=== PATIENT | female | born 1970 | race Caucasian/White ===

== ENCOUNTER → 2016-06-23 | Outpatient (CLI) | payer OTHER ==
[~2016-06-23] MED LIST: ASPCH81X PO; B-COTAB18 PO; CALC1TAB56 PO; CHOL100010 PO; HYDR25TA4 PO; MULT-506 PO; NORCO PO; OXYC-57 PO; POTA-335 PO; POTA-65 PO; TAMO20TA9 PO; ZINC PO; ZINC1CAP PO; ZNTT/150 PO; zinc PO
--- NOTE | 2016-06-23 17:05 | DIAGNOSTIC IMAGING REPORT ---
EXAMINATION: PELVIC ULTRASOUND CLINICAL HISTORY: D25.9 Leiomyoma of uterus FIBROIDS. PELVIC PAIN. COMPARISON STUDY: 03/23/2016 FINDINGS: The uterus measured enlarged with a maximum dimension 10 cm. Several fibroids measuring up to 5.0 x 5.2 cm. This is minimally increased in the prior study.. The endometrial stripe measured 5 mm unchanged. The right ovary measured 3.5 cm. Normal vascular flow. Small slightly complex ovarian cysts measuring up to 1.5 cm.. The left ovary measured 4 definition of the left ovary similar compared to the prior study. 6 cm exophytic fibroid most likely adjacent to the left ovary. This appearance is unchanged.. There is no ultrasonographic evidence of ovarian torsion. It should be noted that ovarian torsion can be present with normal Doppler ultrasonographic findings. There was no evidence of pathologic free pelvic fluid. IMPRESSION: 1. Several uterine fibroids with overall appearance unchanged from the prior exam. 2. Exophytic fibroid on the left adjacent to the left ovary 3. Several small right ovarian cysts Electronically signed by: Moy Donohue M.D. 06/23/2016 5:04 PM
== END | disposition home or self-care (01) ==
LOC: C.ULTR 15:52
PROVIDERS: ATTEND Obstetrics & Gynecology
DX: D25.9 Leiomyoma of uterus, unspecified (principal)

== ENCOUNTER → 2016-08-13 | Outpatient (CLI) | payer OTHER ==
[~2016-08-13] MED LIST changes: -ASPCH81X PO; -CALC1TAB56 PO; -POTA-65 PO; +TAMO20TA47 PO; -TAMO20TA9 PO; -ZINC PO
== END | disposition home or self-care (01) ==
LOC: C.PAPS 10:28
PROVIDERS: ATTEND Obstetrics & Gynecology
DX: Z12.4 Encounter for screening for malignant neoplasm of cervix (principal)

== ENCOUNTER 2016-08-20 07:43 | Observation (INO) | payer OTHER ==
[2016-08-13 13:38] VITALS: BMI 35.0
--- NOTE | 2016-08-13 14:08 | PAT Medication Instructions ---
Service Date Aug 13, 2016. Current Home Medication List B-Complex Vitamins (Vitamin B Complex), 1 TAB PO QAM Cholecalciferol (Vitamin D), 1,000 INTER.UNIT PO QAM Hydrochlorothiazide (Hctz), 25 MG PO QAM Multivitamin (Multivitamin), 1 TAB PO QAM Potassium Chloride (Micro-K Ext Rel), 20 MEQ PO BID Ranitidine (Zantac), 150 MG PO BID PRN for PRN Tamoxifen (Nolvadex), 20 MG PO NOON [[place]], 0.5-1 TAB PO PRN [zinc], 50 MG PO QAM Medication Instructions For Your Scheduled Surgery - Check with surgeon/prescribing physician: Tamoxifen (Nolvadex), 20 MG PO NOON - Hold the following medications the morning of surgery: [zinc], 50 MG PO QAM Ranitidine (Zantac), 150 MG PO BID PRN for PRN Multivitamin (Multivitamin), 1 TAB PO QAM Potassium Chloride (Micro-K Ext Rel), 20 MEQ PO BID B-Complex Vitamins (Vitamin B Complex), 1 TAB PO QAM Cholecalciferol (Vitamin D), 1,000 INTER.UNIT PO QAM Hydrochlorothiazide (Hctz), 25 MG PO QAM - Take the following medications the morning of surgery with a sip of water: [[place]], 0.5-1 TAB PO PRN (okay to take up to 4 hours prior to surgery if needed ) - Take the following medications as scheduled the night before surgery: Ranitidine (Zantac), 150 MG PO BID PRN for PRN Potassium Chloride (Micro-K Ext Rel), 20 MEQ PO BID [[place]], 0.5-1 TAB PO PRN If you have any questions please call us at [phone] (Pamela Hodges PA-C ) or [phone] or [phone]
[2016-08-13 14:42] LABS: BASO % 0.5 %; BASO ABS # 0.04 K/uL (0-0.2); COMPLETE YES; EOS % 2.7 %; HEMATOCRIT 41.6 % (37-47); IG% 0.1 %; LYMPH % 42.5 %; LYMPH ABS # 3.61 K/uL (1.2-3.4); MEAN CELL VOLUME 91.8 fL (80-100); MEAN CORPUSCULAR HGB CONC 34.9 g/dl (32-36); MEAN PLATELET VOLUME 9.3 fL (7.4-10.4); MONO % 7.1 %; NEUT % 47.1 %; PLATELET COUNT 326 K/uL (130-400); RED BLOOD COUNT 4.53 M/uL (4.2-5.4)
[2016-08-13 15:15] LABS: BUN/CREATININE RATIO 20.2 (10-20); CALCIUM 9.3 mg/dl (8.5-10.1); CREATININE 0.65 mg/dl (0.60-1.20); POTASSIUM 3.8 mmol/L (3.5-5.1)
[~2016-08-20] VITALS: Ht 167.6 cm; Wt 99.1 kg
[2016-08-20] MEDS: CEFAZOLIN 2000 MG/60 ML D5W 50 ML IV SCH ×2 (06:00→09:17)
[~2016-08-20 07:43] MED LIST changes: +ACETAMINOPHEN 1000 MG/100 ML IV IV ONE; +DEXAMETHASONE SOD INJ 4 MG/ML VIAL ONE; +EpHEDrine SULFATE INJ 50 MG/ML AMP ONE; +FENTANYL CITRATE INJ 50 MCG/1 ML 2 ML VIAL ONE; +GLYCOPYRROLATE INJ 0.2 MG/ML VIAL ONE; +LACTATED RINGER'S 1000ML 1,000 ML IV SCH; +LIDOCAINE HCL 2% 2 ML VIAL (20MG/ML) ONE; +MIDAZOLAM HCL 1 MG/ML 2ML VIAL ONE; +NEOSTIGMINE METHYLSULFATE 5 MG/5 ML SYR ONE; +ONDANSETRON INJ 2 MG/ML 2 ML VIAL ONE; -OXYC-57 PO; +PHENYLEPHRINE HCL INJ 10 MG/ML VIAL ONE; +PROPOFOL IV EMULSION 10 MG/ML 20 ML VIAL IV ONE; +ROCURONIUM BROMIDE 10 MG/ML 5 ML VIAL ONE; +SUCCINYLCHOLINE CHLORIDE 20 MG/ML 10 ML VIAL IV ONE; -ZINC1CAP PO
[2016-08-20 08:09] VITALS: BP 125/70; PULSE 63; TEMP 36.9; O2SAT 99; Ht 167.6 cm; Wt 99.1 kg
[2016-08-20] MEDS ORDERED: METHYLENE BLUE 0.5% 10 ML VIAL ONE (08:30)
[2016-08-20] MEDS ORDERED: BUPIVACAINE 0.5 % 5 MG/1 ML MPF 30ML VIAL ONE (08:30)
--- NOTE | 2016-08-20 08:57 | History & Physical Bridge Note ---
H&P Re-Evaluation Bridge Note: I have examined the patient, reviewed the History & Physical and in the interval since the performance of the History & Physical I have noted the following changes of clinical significance: No changes noted
[2016-08-20] MEDS ORDERED: FENTANYL CITRATE INJ 50 MCG/1 ML 2 ML VIAL ONE ×3 (09:17→12:18)
[2016-08-20] MEDS ORDERED: LABETALOL HCL IV 5 MG/ML 20ML IV PRN (10:00)
[2016-08-20] MEDS ORDERED: ONDANSETRON INJ 2 MG/ML 2 ML VIAL IV PRN (10:00)
[2016-08-20] MEDS ORDERED: PROMETHAZINE HCL INJ 12.5 MG in SODIUM CHLORIDE 0.9% 50ML 50 ML IV PRN (10:00)
[2016-08-20] MEDS ORDERED: ATROPINE SULFATE 0.1 MG/ML 5ML SYR IV PRN (10:00)
[2016-08-20] MEDS ORDERED: TISSEEL FIBRIN SEALANT 4ML TOP ONE (11:23)
[2016-08-20] MEDS ORDERED: PROPOFOL IV EMULSION 10 MG/ML 20 ML VIAL IV ONE (11:55)
[2016-08-20] MEDS ORDERED: ROCURONIUM BROMIDE 10 MG/ML 5 ML VIAL ONE (11:55)
[2016-08-20] MEDS ORDERED: ONDANSETRON INJ 2 MG/ML 2 ML VIAL ONE (11:55)
[2016-08-20] MEDS ORDERED: PHENYLEPHRINE 100MCG/ML 5ML SYR ONE (12:10)
[2016-08-20] MEDS ORDERED: LACTATED RINGER'S 1000ML 1,000 ML IV SCH (12:42)
[2016-08-20] MEDS ORDERED: ACETAMINOPHEN 325 MG TAB PO PRN (12:45)
[2016-08-20] MEDS ORDERED: MEPERIDINE HCL 75 MG/ML CARP IV PRN (12:45)
[2016-08-20] MEDS ORDERED: IBUPROFEN 600 MG TAB PO PRN (12:45)
[2016-08-20] MEDS ORDERED: OXYCODONE/ACETAMINOPHEN 5-325 TAB PO PRN ×2 (12:45)
[2016-08-20] MEDS ORDERED: OXYC-57 PO (12:45)
[2016-08-20] MEDS ORDERED: KETOROLAC TROMETHAMINE 30 MG/ML VIAL IV. PRN (12:45)
[2016-08-20] MEDS ORDERED: MEPERIDINE HCL 50 MG/ML CARP IV PRN (12:45)
--- NOTE | 2016-08-20 12:46 | Discharge Instructions ---
Discharge Instructions Admission Reason for Admission: Abnormal Uterine Bleeding, Dysmenorrhea, Leiomyoma Discharge Discharge Diagnosis / Problem: s/p laproscopic hyster and removal of both tubes and ovaries Discharge Goals Goal(s): Routine recovery after surgery Activity Recommendations Activity Limitations: per Instructions/Follow-up section . Instructions / Follow-Up Instructions / Follow-Up POST OPERATIVE: BOWEL FUNCTION/MEDICATIONS: 1. Constipation pain and discomfort are the most common complaints 5-7 days after surgery. Points 2-6 address the things that can help. 2. Chewing gum can help stimulate the gut and help improve digestion and motility. 3. Milk of Magnesia 1-2 times per day until return of bowel function. 4. Colace is a stool softener that helps. Taking this 2-3 times per day until bowel function returns to normal is highly recommended. 5. Dulcolax is a laxative that may be used if several days have passed without a bowel movement. Alternatively Miralax may be used daily instead. 6. Drink plenty of fluids as this will also reduce constipation. 7. Narcotic pain medications will be prescribed by your physician. They are safe to use and we encourage you to use them. If you are not allergic, ibuprofen will also be prescribed. Many patients will be able to transition off of the narcotic medications to ibuprofen by postoperative day 3. ACTIVITY RECOMMENDATIONS: 1. Get plenty of rest and listen to your body. If you are tired, take a nap. 2. You may shower, but do not take a tub bath until you see your doctor at the 2 week post operative visit. 3. Absolutely NO intercourse and nothing in the vagina until you are examined by your doctor at the 6 week visit. At that visit it will be determined when such activities can be resumed. This can range from 6-12 weeks after your surgery depending on healing time. 4. The main physical activity in the first week should be walking. By the second week you can slowly increase activity. There are no limits on walking up and down stairs. 5. Do not lift more than 5-10 lbs for 4 weeks. Remember the "one-handed rule", i.e. if you can lift something with only one hand it's likely okay. 6. Minimize senior engineering specialist like vacuuming and exercising for 4 weeks. "Overdoing it" can lead to incisions not healing, pain and vaginal bleeding , so again, listen to your body. 7. Driving can be resumed when you feel able. Do not drive within 24 hours of taking a narcotic medication. EXPECTATIONS: 1. Vaginal spotting, bleeding and discharge are common after surgery. There may even be an odor to the discharge which is often related to sutures used in the vagina. If you experience heavy vaginal bleeding, call the office number day or night [phone]. 2. Bladder discomfort is common after surgery from the catheter. This usually resolves in 1-2 weeks. 3. By the end of the 3rd or 4th week you should be feeling much better. It may take up to 6 weeks for your energy levels to return to normal. 4. Narcotic medications have side effects such as: dizziness, headache, nausea and/or vomiting. If you suspect your pain medication is causing problems, call our office and we may be able to prescribe an alternate medication. 5. The skin incisions are often covered with a liquid bandage. This will gradually peel off over time. CALL THE OFFICE IF YOU HAVE ANY OF THE FOLLOWIN. Temperature of 101 degrees or higher. 2. Severe abdominal or pelvic pain not relieved by pain medication. 3. Persistent nausea or vomiting. 4. Increased pain with urination or difficulty urinating. 5. Bright red bleeding that soaks more than 1 pad per hour. CONTACT PHONE NUMBERS: Main Office: [phone] Surgical Nurse: [phone] extension [phone] FOLLOW-UP: Post-Operative Appointments: * Individual instructions will have been given about the timing of your first examination, but this is usually at the end of the second week home. * You will need to call the office at soon after discharge to make the appointment for your post-op check-up if it has not already been scheduled. * Additional information regarding activity, sexual intercourse and when to return to work will be given at this appointment. WE WISH YOU A SPEEDY RECOVERY! Current Hospital Diet Patient's current hospital diet: Discharge Diet Recommended Diet: Regular Diet Procedures Procedures Performed: Robotic Assisted Total Laparoscopic Hysterectomy Bilateral Salpingo-oophorectomy Removal of uterine fibroids, and Excite procedure, Cystoscopy Pending Studies Studies pending at discharge: no Medical Emergencies . Who to Call and When: Medical Emergencies: If at any time you feel your situation is an emergency, please call 911 immediately. . Non-Emergent Contact Non-Emergency issues call your: Blood Donor Recruiter . . "Provider Documentation" section prepared by Sariah Gross. VTE Core Measure Inpt VTE Proph given/why not?: Treatment not indicated [place] Drug Monitoring Program Search Results: patient reviewed within database, no issues identified
--- NOTE | 2016-08-20 12:48 | [facility] Post Operative Brief Note ---
Immediate Operative Summary Operative Date Aug 20, 2016. Pre-Operative Diagnosis Abnormal Uterine bleeding, dysmenorrhea, uterine fibroid Post-Operative Diagnosis Abnormal Uterine bleeding, dysmenorrhea, uterine fibroid Procedure(s) Performed Robotic Assisted Total Laparoscopic Hysterectomy Bilateral Salpingo-oophorectomy Removal of uterine fibroids, and Excite procedure, Cystoscopy Surgeon Dr. Sariah Gross Preform Machine Operator Surgeon(s) Dr. Pamela Amor Estimated Blood Loss 100 ML Findings enlarged uterus with 2-5cm pedunculated fundal fibroids, uterine body enlarged with fibroids, endometriosis, adherence of the right ovary to the posterior uterus, nl left ovary and tubes. nl appendix. Specimens Permanent Specimen A: Uterus, cervix and bilateral ovaries and fallopian tubes and uterine fibroids Drains ballard Anesthesia gett Complication(s) None Disposition Recovery Room / PACU
[2016-08-20] MEDS: HYDROmorphone INJ 2 MG/ML SYR/VIAL IV PRN ×5 (13:10→13:30)
[2016-08-20 14:00] VITALS: BP 126/76; PULSE 81; TEMP 36.5; O2SAT 97; O2SAT 99
[2016-08-20 14:30] VITALS: BP 116/73; PULSE 80; O2SAT 99
--- NOTE | 2016-08-20 14:44 | Anesthesiology Progress Note ---
Anesthesia Post Op Note Date & Time Aug 20, 2016 at 14:44 Vital Signs Pain Intensity: 4.0 Vital Signs Past 12 Hours Date Time Temp Pulse Resp B/P Pulse Ox O2 Delivery O2 Flow Rate FiO2 08/20/16 13:50 36.4 80 24 133/71 97 Room Air 08/20/16 13:40 77 18 125/71 99 Room Air 08/20/16 13:30 77 14 120/81 98 Room Air 08/20/16 13:20 36.8 75 18 128/76 98 Room Air 08/20/16 13:10 69 18 122/68 100 Room Air 08/20/16 13:00 61 19 123/77 100 Mask 10 08/20/16 12:50 70 18 126/59 100 Mask 10 08/20/16 12:42 36.2 64 18 119/62 96 Mask 10 08/20/16 08:09 36.9 63 18 125/70 99 Room Air Notes Mental Status: alert / awake / arousable, participated in evaluation Pt Amnestic to Procedure: Yes Nausea / Vomiting: adequately controlled Pain: adequately controlled Airway Patency, RR, SpO2: stable & adequate BP & HR: stable & adequate Hydration State: stable & adequate Anesthetic Complications: no major complications apparent
[2016-08-20 15:00] VITALS: BP 117/72; PULSE 81; O2SAT 99
[2016-08-20] MEDS ORDERED: IV FLUIDS COMPLETED PRN (15:30)
[2016-08-20 16:00] VITALS: BP 119/73; PULSE 74; TEMP 36.6; O2SAT 98
[2016-08-20 20:03] VITALS: BP 119/73; PULSE 74; TEMP 36.6; O2SAT 98
[2016-08-20] MEDS ORDERED: DOCUSATE SODIUM 100 MG CAP PO SCH (21:00)
--- NOTE | 2016-08-20 22:41 | OPERATIVE REPORT ---
DATE OF OPERATION: 08/20/2016 PREOPERATIVE DIAGNOSES: 1. Fibroid uterus. 2. History of dysmenorrhea and menorrhagia. 3. History of ER positive breast cancer. POSTOPERATIVE DIAGNOSES: Same. PROCEDURES: 1. Total laparoscopic hysterectomy with bilateral salpingo-oophorectomy with da Yessenia assist. 2. ExCITE procedure for removal of the surgical specimen. 3. Cystoscopy. SURGEON: Dr. Gross. PROFESSOR OF EXERCISE SCIENCE: Dr. Pamela Amor. ANESTHESIA: General per endotracheal tube. ESTIMATED BLOOD LOSS: 100 mL. FLUIDS: 1700 mL. URINE OUTPUT: Approximately 200 mL of clear yellow urine drained from first Denise catheter prior to cystoscopy. HISTORY: Heidi is a 46-year-old 0, who was recently diagnosed with ER positive breast cancer. She also has fibroid uterus that has shown some small growth with some dysfunctional bleeding on tamoxifen and dysmenorrhea. She has elected for surgical therapy and her oncologist recommends removal of both her tubes and ovaries. FINDINGS: Uterus is enlarged. The uterine body itself is probably 8 weeks size. There are two 5-cm pedunculated fibroids arising from the fundus of the uterus. The right ovary is attached to the posterior uterus and there is evidence of endometriosis. The right tube and left tube were normal. Left ovary was normal. COMPLICATIONS: None. DRAINS: Denise. DISPOSITION: To recovery room in stable condition. DESCRIPTION OF PROCEDURE: The patient was taken to the operating room, where she was identified verbally and by bracelet. She was placed in dorsal supine position, where general anesthesia was induced without difficulty. She was then placed in dorsal lithotomy position in [facility]. Her arms were carefully prepped and tucked at her sides. Her chest was restrained. A headmaster/mistress was placed and she was prepped and draped in normal sterile fashion. Timeout was held, identifying correct patient, procedure and positioning. Attention was turned to the perineum, where a Denise catheter was placed. I was only able to sound to 5 cm, which I knew was certainly not within the uterine cavity but the VCare was placed anyway and sutured at 9 o'clock. Gloves were then changed. Attention was then turned to the abdomen, where a supraumbilical incision was made 2 cm above the umbilicus. The Veress needle was placed through this with opening pressure of 5 mmHg. The abdomen was insufflated with 4 liters of carbon dioxide gas. The 12-mm optical trocar with the camera was placed through this and intraabdominal placement was confirmed. Then under direct visualization, a left lower quadrant, a right lower quadrant and a left upper quadrant trocar were placed. The above noted findings were noted. The site was marked for the third arm. The da Yessenia medical surgical tech device was docked to the patient with 2 arms. Attention was then turned to the console. We began by first identifying the ureter on the right, finding it being free from the IP, the right infundibulopelvic ligament was taken down with cautery and scissors. The round ligament was then identified and taken down and the tubo-ovarian ligament as well. Once this was performed, I could tell that I was going to need the third arm to help with retraction and so, I scrubbed back into the case. The right lower quadrant trocar was found to be too close to the camera trocar, so it was removed. It was replaced more laterally under direct visualization and then another 8-mm trocar was placed in the right upper quadrant. Scissors were placed in arm 3, fenestrated bipolar in arm 2 and ProGrasp in arm 3. The surgeon then returned to the console. I was then able with better retraction to skeletonize the uterine artery, create the bladder flap and push down the bladder. The uterine arteries on the right side were cauterized and cut. Then attention was turned to the left side where the infundibulopelvic ligament was found to be free from the ureter. It was taken with cautery and scissors and then the round ligament was entered with cautery and scissors. I was able to go down, finish the bladder flap anteriorly, push down the bladder, skeletonize the uterine arteries and take the uterine arteries with cautery and scissors. Now that our blood supply was taken, I took off the two 5-cm fibroids that were pedunculated off the fundus in the hopes that we could get this uterus through the vagina and then pass the fibroids through. These were removed and placed in the right upper quadrant. A colpotomy incision was then made in 365 degrees and the specimen was removed from the vagina. We did attempt to remove the uterus through the vagina but we were unable to, so the uterus was placed into the right upper quadrant. The colpotomy incision was then closed with 2-0 VCare suture. Hemostasis was noted to be good, but FloSeal was placed over the cuff. I then rescrubbed in. I performed cystoscopy with a 70-degree scope and found no injury to the bladder, found blue urine effluxing from both ureters. Cystoscopy was discontinued. The old Denise had been removed and a new clean Denise was replaced. Gloves were then changed. Attention was then turned to the abdomen, where a 15-mm trocar was placed into the supraumbilical incision after I opened the incision to about 2-3 cm and as well and opened the fascial incision. The fascia was marked with 0 Vicryl on a UR-6. Then using the 5-mm scope, 2 of the 3 specimens were placed into the bag. The bag was brought up to the umbilicus and then using a knife, the specimen was broken up into several pieces. The bag was removed and a new bag was placed. Under direct visualization, the third pedunculated fibroid that had been cut off was placed into this. The bag was brought up through the incision and an ExCITE procedure was performed. This ExCITE procedure required us to put a small self-retaining plastic retractor into the incision to keep our hole open and then under direct visualization, the knife was used to cut the specimen using a C-type incision into several pieces. Once this was accomplished, that procedure was terminated. The gas was released. All trocars were removed. The fascia of the supraumbilical incisions was reapproximated with 0 Vicryl that were placed into this. All the incisions were irrigated. They were closed with 4-0 Vicryl in a subcuticular fashion. They were infiltrated with 0.5% Marcaine and treated with Dermabond. All sponge, lap and needle counts were correct x2. The patient tolerated the procedure well and was taken to recovery room in stable condition. I attest to the content of the Intraoperative Record and any orders documented therein. Any exceptions are noted below. CHIARA
--- NOTE | 2016-08-23 22:21 | DISCHARGE SUMMARY ---
ADMISSION DIAGNOSES: 1. Fibroid uterus. 2. Dysfunctional uterine bleeding and dysmenorrhea. 3. ER-positive breast cancer. DISCHARGE DIAGNOSES: Same. PROCEDURES: Total laparoscopic hysterectomy and bilateral salpingo-oophorectomy via da Yessenia assist. 2. ExCITE procedure to remove surgical specimen. 3. Cystoscopy. HISTORY OF PRESENT ILLNESS: The patient is a 46-year-old white female in a same sex relationship with a history of ER-0positive breast cancer. She has a symptomatic fibroid uterus, first discovered in, what looks like to be, 2015 with several fibroids, two of which are approximately 5 cm in largest diameter. She feels a lot of pressure on her bladder from the fibroids and bloating. The size of the uterus has remained fairly stable since discovering the fibroids. The patient has irregular periods and could go a few months between periods. An endometrial biopsy from 2015 revealed only endocervical tissue, Pap in 2014 was normal. She has been on tamoxifen about 1 year. When she is on the tamoxifen, she does not really bleed, as she has had stopped a few times for procedures, she has had some bleeding. She was really regular with her menses until up to this time point. Also noted increased cramping since starting all of this. Her oncologist would like to have her tubes and ovaries removed. Ultrasound shows an enlarged uterus, measuring 10 cm in largest diameter, with several fibroids in the body of the uterus, measuring 5 cm. There is also a 6-cm exophytic fibroid on the left. The right ovary shows a small complex cyst, measuring 1.5 cm. Left ovary is normal. For the rest of the patient's detailed history and physical, please see her dictated history and physical. ASSESSMENT: This is a 46-year-old G0 with a fibroid uterus, dysfunctional bleeding and ER-positive breast cancer and we plan to proceed with total laparoscopic hysterectomy, bilateral salpingo-oophorectomy and cystoscopy. HOSPITAL COURSE: 1. The patient was admitted and she underwent total laparoscopic hysterectomy and bilateral salpingo-oophorectomy via da Yessenia certified ophthalmic surgical assistant. 2. ExCITE procedure for surgical specimen removal. 3. Cystoscopy. 4. Estimated blood loss was 100 mL Findings at the time of surgery revealed a uterus with two 5-cm pedunculated fundal fibroids. The uterine body was enlarged with fibroids. There was endometriosis with adherence of the right ovary to the posterior uterus, a normal left ovary and tubes, normal appendix. The patient did well postoperatively. She voided after the removal of the Denise catheter, was able to tolerate a regular diet, able to tolerate oral pain medications and ambulate without difficulty. She was discharged home on the evening of her postop day 0. She was given Percocet for pain. She will return in 2 weeks for postoperative check.
== END 2016-08-20 20:25 | disposition home or self-care (01) ==
LOC: ENRESERVDT → ENRESERVTM → C.ACU 07:43 → C.MS4N 14:29
PROVIDERS: ADMIT Obstetrics & Gynecology; ATTEND Obstetrics & Gynecology
DX: D25.9 Leiomyoma of uterus, unspecified (principal); N93.8 Other specified abnormal uterine and vaginal bleeding; C50.919 Malignant neoplasm of unspecified site of unspecified female breast; N94.6 Dysmenorrhea, unspecified; I10 Essential (primary) hypertension; Z80.3 Family history of malignant neoplasm of breast; Z81.2 Family history of tobacco abuse and dependence; Z83.3 Family history of diabetes mellitus; Z82.3 Family history of stroke
CPT/HCPCS: 58573; S2900

== ENCOUNTER → 2016-09-07 | Day surgery (SDC) | payer OTHER ==
[2016-09-03 10:02] VITALS: Ht 167.6 cm; Wt 99.1 kg
[2016-09-03 13:34] LABS: HEMATOCRIT 41.2 % (37-47); MEAN CORPUSCULAR HEMOGLOBIN 32.7 pg (25-34); MEAN CORPUSCULAR HGB CONC 35.2 g/dl (32-36); MEAN PLATELET VOLUME 9.4 fL (7.4-10.4); PLATELET COUNT 328 K/uL (130-400); RED BLOOD COUNT 4.43 M/uL (4.2-5.4); WHITE BLOOD COUNT 10.24 K/uL (4.8-10.8)
[2016-09-03 13:43] LABS: INR 0.9 (0.9-1.1); PARTIAL THROMBOPLASTIN RATIO 1.1; PROTHROMBIN TIME (PATIENT) 9.8 SECONDS (9.0-12.0)
[2016-09-03 14:05] LABS: POTASSIUM 3.5 mmol/L (3.5-5.1)
[~2016-09-07] VITALS: Ht 167.6 cm; Wt 99.1 kg
[~2016-09-07] MED LIST changes: -ACETAMINOPHEN 1000 MG/100 ML IV IV ONE; +ACETAMINOPHEN 325 MG TAB PO PRN; +ACETAMINOPHEN IV 650 MG in EMPTY BAG 0 ML IV PRN; +BACITRACIN OINT 0.9 GM PKT ONE; +CEFAZOLIN 2000 MG/60 ML D5W IV SCH; -DEXAMETHASONE SOD INJ 4 MG/ML VIAL ONE; -EpHEDrine SULFATE INJ 50 MG/ML AMP ONE; -GLYCOPYRROLATE INJ 0.2 MG/ML VIAL ONE; +LIDOCAINE HCL 1% 20 ML VIAL ONE; +METOCLOPRAMIDE HCL INJ 5 MG/ML 2 ML VIAL IV PRN; -NEOSTIGMINE METHYLSULFATE 5 MG/5 ML SYR ONE; -NORCO PO; +ONDANSETRON INJ 2 MG/ML 2 ML VIAL IV PRN; -ONDANSETRON INJ 2 MG/ML 2 ML VIAL ONE; +OXYCODONE/ACETAMINOPHEN 5-325 TAB PO PRN; -PHENYLEPHRINE HCL INJ 10 MG/ML VIAL ONE; -ROCURONIUM BROMIDE 10 MG/ML 5 ML VIAL ONE; +SODIUM CHLORIDE 0.9% 1000ML 1,000 ML IV SCH; -SUCCINYLCHOLINE CHLORIDE 20 MG/ML 10 ML VIAL IV ONE
--- NOTE | 2016-09-07 14:41 | [facility] Post Operative Brief Note ---
Immediate Operative Summary Operative Date Sep 07, 2016. Pre-Operative Diagnosis Encounter for breast reconstruction following mastectomy Post-Operative Diagnosis Same Procedure(s) Performed Bilateral Nipple Reconstruction And Left Breast Scar Revision Surgeon Dr. Russell Insurance Sales Agent Surgeon(s) Citlalli Vasquez PA-C Estimated Blood Loss 5ML Findings none Specimens A. Left Breast Scar Tissue Anesthesia local with sedation Complication(s) None Disposition Recovery Room / PACU
--- NOTE | 2016-09-07 14:42 | Discharge Instructions ---
Discharge Instructions Date of Service Sep 07, 2016. Admission Reason for Admission: Breast Reconstruction Following Mastectomy Discharge Discharge Diagnosis / Problem: Breast Reconstruction Following Mastectomy Discharge Goals Goal(s): Decrease discomfort Activity Recommendations Activity Limitations: per Instructions/Follow-up section ACTIVITY RECOMMENDATIONS: __Normal activities _x_No bending, lifting or straining __No driving __Driving allowed when you are off pain medications __Walking permitted __You should have help at home for ___ days DRESSINGS: __No dressings required _x_Keep dressings dry/in place until first office visit. DO NOT WEAR A BRA __Remove dressings ___ and leave dressings off __Apply ice ___ days __Remove dressings and reapply garment __Apply antibiotic ointment (Bacitracin, Neosporin, etc) to wounds 3-4 times/ day for 10 days BATHING: _x_Keep dressings dry _x_Sponge bathing permitted __Showering permitted _x_No swimming, hot tubs or soaking in a tub MEDICATIONS: Resume previous medications unless instructed otherwise by your surgeon. _x_Do not use aspirin, Motrin, Advil or Ibuprofen as these may promote bleeding. Please use Tylenol. _x_Prescription(s) provided: Pain medication provided at your last office visit OTHER INSTRUCTIONS: __Record drain output 2-3 times per day SPECIAL CARE INSTRUCTIONS: * It is normal to have a mild fever after surgery. If your temperature is higher than 101.5 degrees F, please call the office at [phone]. * Constipation is a typical side effect of pain medication. An over-the- counter stool softener will help relieve this. * Leaking around surgical drains may occur and should not cause concern. Sometimes these drains become clogged. If this happens, remove the bulb and milk the clot out of the tube, then replace the bulb. * Drainage from wounds after liposuction is normal and should be expected. Garments will become soiled. You should protect furniture and bedding. This drainage should mostly subside within 2-3 days. Leave garments in place unless instructed to remove them. * If you have unusual drainage from a wound or are concerned you have an infection or have any questions or concerns, please call the office at [phone]. FOLLOW UP VISIT: If not already scheduled, please call the office, , when you return home after surgery to schedule an appointment to be seen in _2__ days. . Current Hospital Diet Patient's current hospital diet: Discharge Diet Recommended Diet: Regular Diet Procedures Procedures Performed: Bilateral Nipple Reconstruction And Left Breast Scar Revision Pending Studies Studies pending at discharge: yes List of pending studies: pathology Medical Emergencies . Who to Call and When: Medical Emergencies: If at any time you feel your situation is an emergency, please call 911 immediately. . Non-Emergent Contact Non-Emergency issues call your: Primary Care Provider, Surgeon . "Provider Documentation" section prepared by Chaya Vasquez. VTE Core Measure Inpt VTE Proph given/why not?: SCD's [place] Drug Monitoring Program Search Results: no issues identified
[2016-09-07 14:47] VITALS: TEMP 36.4
--- NOTE | 2016-09-07 15:13 | Anesthesia Progress Nt - [facility] ---
Anesthesia Post Op Note Date & Time Sep 07, 2016 at 15:14 Vital Signs Pain Intensity: 0 Vital Signs Past 12 Hours Date Time Temp Pulse Resp B/P Pulse Ox O2 Delivery O2 Flow Rate FiO2 09/07/16 14:47 36.4 84 16 113/78 100 Room Air 09/07/16 11:45 37 75 16 115/75 99 Room Air Notes Mental Status: alert / awake / arousable, participated in evaluation Pt Amnestic to Procedure: Yes Nausea / Vomiting: adequately controlled Pain: adequately controlled Airway Patency, RR, SpO2: stable & adequate BP & HR: stable & adequate Hydration State: stable & adequate Anesthetic Complications: no major complications apparent
[2016-09-07 15:18] VITALS: BP 129/86; PULSE 76; O2SAT 100
--- NOTE | 2016-09-08 16:14 | OPERATIVE REPORT ---
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 POSTOPERATIVE DIAGNOSIS: Same. PROCEDURE: Bilateral nipple reconstruction using spiral flaps. SURGEON: Dr. Risa Russell. RODEO PERFORMER: Chaya Vasquez PA-C. ANESTHESIA: Local with sedation. COMPLICATIONS: None. INDICATION FOR THE PROCEDURE: The patient is a 46-year-old female who underwent bilateral mastectomy with tissue hr associate based reconstruction followed by placement of a permanent breast prosthesis. She desired reconstruction of the nipple-areolar complexes. Given her scar position, I felt it would be most reasonable to proceed with nipple reconstruction using spiral flap with tattooing of the nipple and areola in about 3 months. BRIEF DESCRIPTION OF THE PROCEDURE: Risks, benefits, and alternatives of the procedure were explained to the patient, who agreed and signed consent. She was identified and marked in the preoperative holding area. Nipple-areolar complex position was verified with the patient prior to proceeding. The patient was brought to the operating room where she was positioned supine and placed under anesthesia without incident. Surgical site was prepped and draped sterilely. I began with the left side. Markings were assessed and the flaps were marked. Flaps were designed as an inferiorly based flap inferior to the mastectomy incision. Base of the flap was marked to be 1 cm in diameter and the medial and lateral aspects of the flap were marked to be 5 cm in length, tapering up toward the prior incision. 1% lidocaine plain was used to anesthetize the area. A 15-blade scalpel was used to make the incisions. Flaps were raised with some underlying subcutaneous tissue. There was no exposure of the implant during raising of the flaps. Hemostasis was achieved with electrocautery. The incision was closed using 3-0 PDS interrupted dermal sutures. The spiral flaps were then sutured using 6-0 Vicryl interrupted sutures to create a projecting nipple. Excess skins at the tips of the flaps were excised using a curved iris scissor. The edges of the flap were bleeding and the flap appeared pink and viable at the close of the case. The incision was closed using 3-0 Monocryl running subcuticular suture. A similar procedure was undertaken on the right side. Also on the left side, the patient desired to have a small medial and lateral dog ear excised. These were marked and injected with 1% lidocaine plain. The incision was made using 15 blade scalpel. Both aspects of the scar were sent to pathology. The wound was reapproximated using 3-0 PDS interrupted dermal sutures and 5-0 Prolene interrupted skin sutures. The procedure was tolerated well. Dermabond was applied to the incisions and the nipples were dressed using bacitracin and Xeroform followed by fluffs sponges. Warren foam was used to create a donut dressing to place around the nipple to prevent compression. The procedure was tolerated well. The patient was awakened and transferred to recovery in satisfactory condition. I attest to the content of the Intraoperative Record and any orders documented therein. Any exceptio ns are noted below.
== END | disposition home or self-care (01) ==
LOC: X.SURG 11:42
PROVIDERS: ATTEND Plastic Surgery
DX: Z42.1 Encounter for breast reconstruction following mastectomy (principal); Z90.13 Acquired absence of bilateral breasts and nipples; I10 Essential (primary) hypertension; Z82.49 Family history of ischemic heart disease and other diseases of the circulatory system; Z83.3 Family history of diabetes mellitus; Z82.3 Family history of stroke; Z78.9 Other specified health status; F17.200 Nicotine dependence, unspecified, uncomplicated; F17.210 Nicotine dependence, cigarettes, uncomplicated

== ENCOUNTER → 2017-02-10 | Outpatient (CLI) | payer OTHER ==
[~2017-02-10] MED LIST changes: -ACETAMINOPHEN 325 MG TAB PO PRN; -ACETAMINOPHEN IV 650 MG in EMPTY BAG 0 ML IV PRN; -BACITRACIN OINT 0.9 GM PKT ONE; -CEFAZOLIN 2000 MG/60 ML D5W IV SCH; -FENTANYL CITRATE INJ 50 MCG/1 ML 2 ML VIAL ONE; -LACTATED RINGER'S 1000ML 1,000 ML IV SCH; -LIDOCAINE HCL 1% 20 ML VIAL ONE; -LIDOCAINE HCL 2% 2 ML VIAL (20MG/ML) ONE; -METOCLOPRAMIDE HCL INJ 5 MG/ML 2 ML VIAL IV PRN; -MIDAZOLAM HCL 1 MG/ML 2ML VIAL ONE; -ONDANSETRON INJ 2 MG/ML 2 ML VIAL IV PRN; -OXYCODONE/ACETAMINOPHEN 5-325 TAB PO PRN; -PROPOFOL IV EMULSION 10 MG/ML 20 ML VIAL IV ONE; -SODIUM CHLORIDE 0.9% 1000ML 1,000 ML IV SCH; -TAMO20TA47 PO
[2017-02-10 10:42] LABS: CHOLESTEROL/HDL RATIO 2.2
== END | disposition home or self-care (01) ==
LOC: C.LAB 09:23
PROVIDERS: ATTEND Nurse Practitioner
DX: Z00.00 Encounter for general adult medical examination without abnormal findings (principal)

== ENCOUNTER → 2017-05-20 | Day surgery (SDC) | payer OTHER ==
[2016-09-03 10:18] VITALS: BMI 35.0
[2017-05-06 15:46] VITALS: Ht 167.6 cm; Wt 104.5 kg
[~2017-05-20] VITALS: Ht 167.6 cm; Wt 104.5 kg
[~2017-05-20] MED LIST changes: +ASPCH81X PO; +CALC1TAB56 PO; -CHOL100010 PO; +LIDOCAINE HCL 2% 2 ML VIAL (20MG/ML) ONE; +MIDAZOLAM HCL 1 MG/ML 2ML VIAL ONE; +ONDANSETRON INJ 2 MG/ML 2 ML VIAL ONE; -POTA-335 PO; +POTA-65 PO; +PROPOFOL IV EMULSION 10 MG/ML 20 ML VIAL IV ONE; +SODIUM CHLORIDE 0.9% 500ML 500 ML IV ONE; +TAMO20TA9 PO; +ZINC PO; -zinc PO
--- NOTE | 2017-05-20 10:57 | Endo History and Physical ---
History & Physical Date of Service: May 20, 2017. Chief Complaint: screening,history of polyps Referring Physician: Caro OAKLEY History of Present Illness 46 yo CF who presents for colonoscopy secondary to history of colon polyps. Past Medical History Reflux, Cancer, Hypertension Past Surgical History Hx Cardiac Surgery: No Hx Internal Defibrillator: No Hx Pacemaker: No Hx Abdominal Surgery: Yes (MARY BSO, HERNIA REPAIR) Hx of Implantable Prosthesis: No Hx Post-Op Nausea and Vomiting: No Hx Cancer Surgery: Yes (BLT BREAST MASTECTOMY WITH IMPLANT BASED RECONSTRUCTION , BREAST BIOPSY) Hx Thoracic Surgery: No Hx Orthopedic: No Hx Urinary Tract Surgery: No Family History Colon CA, Polyp Social History Smoking Status: Current Every Day Smoker Hx Substance Use: No Hx Alcohol Use: Yes (OCCASIONALLY) Allergies Coded Allergies: NO KNOWN DRUG ALLERGIES (Verified Allergy, Unknown, ., 05/20/17) Current Medications Reported Home Medications Medications Dose Route/Sig Max Daily Dose Days Date Category Nolvadex (Tamoxifen Citrate) 20 Mg Tab 20 Mg PO QPM 05/06/17 Reported Aspirin Chewable (Aspirin) 81 Mg Chew 81 Mg PO HS 05/06/17 Reported [Zinc] 1 Tab PO QAM 05/06/17 Reported Potassium Chloride ER (Potassium Chloride) 20 Meq Tab 1 Tab PO BID 05/06/17 Reported Citracal Calcium+D Slow R (Calcium-Magnesium W/ Vitamin D) 1 Tab Tab 1 Tab PO QAM 05/06/17 Reported Zantac (Ranitidine HCl) 150 Mg Tab 150 Mg PO QAM 08/13/16 Reported Vitamin B Complex (B-Complex Vitamins) 1 Tab Tab 1 Tab PO QAM 08/13/16 Reported Hctz (Hydrochlorothiazide) 25 Mg Tab 25 Mg PO QAM 03/19/15 Reported Multivitamin (Multivitamins) Tab 1 Tab PO QAM 06/02/13 Reported Vital Signs Weight (Kilograms): 104.55 Height (Feet): 5 Height (Inches): 6 Date Time Temp Pulse Resp B/P (MAP) Pulse Ox O2 Delivery O2 Flow Rate FiO2 05/20/17 10:20 37.1 80 20 121/81 (94) 95 Room Air Physical Exam General Appearance: WD/WN, no apparent distress Respiratory/Chest: Auscultation: breath sounds normal Cardiovascular: Heart Auscultation: RRR Abdomen: Bowel Sounds: normal Inspection & Palpation: soft, non-distended, no tenderness, guarding & rebound Assessment and Plan Assessment: 46 yo CF who presents for colonoscopy secondary to history of colon polyps. Plan: Proceed with colonoscopy.
--- NOTE | 2017-05-20 11:28 | GI REPORT ---
Procedure Date: 05/20/2017 10:52 AM Procedure: Colonoscopy Indications: High risk colon cancer surveillance: Personal history of colonic polyps Medicines: Monitored Anesthesia Care Complications: No immediate complications. Estimated Blood Loss: Estimated blood loss: none. Procedure: Pre-Anesthesia Assessment: - Prior to the procedure, a History and Physical was performed, and patient medications and allergies were reviewed. The patient's tolerance of previous anesthesia was also reviewed. The risks and benefits of the procedure and the sedation options and risks were discussed with the patient. All questions were answered, and informed consent was obtained. Prior Anticoagulants: The patient has taken aspirin, last dose was 2 days prior to procedure. ASA Grade Assessment: III - A patient with severe systemic disease. After reviewing the risks and benefits, the patient was deemed in satisfactory condition to undergo the procedure. After I obtained informed consent, the scope was passed under direct vision. Throughout the procedure, the patient's blood pressure, pulse, and oxygen saturations were monitored continuously. The Scope was introduced through the anus and advanced to the terminal ileum. The colonoscopy was performed without difficulty. The patient tolerated the procedure well. The quality of the bowel preparation was good. The terminal ileum, ileocecal valve, appendiceal orifice, and rectum were photographed. Findings: A 4 mm polyp was found in the rectum. The polyp was sessile. The polyp was removed with a cold snare. Resection and retrieval were complete. Non-bleeding internal hemorrhoids were found during retroflexion. The hemorrhoids were small. Impression: - One 4 mm polyp in the rectum, removed with a cold snare. Resected and retrieved. - Non-bleeding internal hemorrhoids. Recommendation: - Resume previous diet. - Continue present medications. - Repeat colonoscopy for surveillance based on pathology results. - Return to primary care physician as previously scheduled. Kevon Toro DO 05/20/2017 11:27:34 AM This report has been signed electronically. Note Initiated On: 05/20/2017 10:52 AM I attest to the content of the Intraoperative Record and orders documented therein, exceptions below
--- NOTE | 2017-05-20 11:29 | Discharge Instructions ---
Endoscopy Patient Instructions Date / Procedure(s) Performed May 20, 2017. Colonoscopy Allergy Information Coded Allergies: NO KNOWN DRUG ALLERGIES (Verified Allergy, Unknown, ., 05/20/17) Discharge Date / Findings May 20, 2017. Rectal polyp Internal hemorrhoids Medication Instructions Stopped Medication(s): took ASA Tuesday OK to resume all medications today as prescribed Reported Home Medications Medications Dose Route/Sig Max Daily Dose Days Date Category Nolvadex (Tamoxifen Citrate) 20 Mg Tab 20 Mg PO QPM 05/06/17 Reported Aspirin Chewable (Aspirin) 81 Mg Chew 81 Mg PO HS 05/06/17 Reported [Zinc] 1 Tab PO QAM 05/06/17 Reported Potassium Chloride ER (Potassium Chloride) 20 Meq Tab 1 Tab PO BID 05/06/17 Reported Citracal Calcium+D Slow R (Calcium-Magnesium W/ Vitamin D) 1 Tab Tab 1 Tab PO QAM 05/06/17 Reported Zantac (Ranitidine HCl) 150 Mg Tab 150 Mg PO QAM 08/13/16 Reported Vitamin B Complex (B-Complex Vitamins) 1 Tab Tab 1 Tab PO QAM 08/13/16 Reported Hctz (Hydrochlorothiazide) 25 Mg Tab 25 Mg PO QAM 03/19/15 Reported Multivitamin (Multivitamins) Tab 1 Tab PO QAM 06/02/13 Reported Provider Instructions Activity Restrictions - No exercising or heavy lifting for 24 hours. - Do not drink alcohol the day of the procedure. - Do not drive a car or operate machinery until the day after the procedure. - Do not make any important decisions or sign important papers in 24 hours after the procedure. Following Day: - Return to full activity which may include returning to work/school. Diet Start your diet with liquids and light foods (jello, soup, juice, toast). Then eat your usual diet if not nauseated. Treatment For Common After Affects For mild abdominal pain, bloating, or excessive gas: - Rest - Eat lightly - Lie on right side Follow-Up Information Follow-up with Caro OAKLEY as scheduled Anesthesia Information What You Should Know You have had a procedure that required some medicine to reduce anxiety and discomfort. This treatment is called moderate sedation. After receiving the treatment, you may be sleepy, but you will be able to breathe on your own. The effects of the treatment may last for several hours. Follow these instructions along with Activity/Diet recommendations noted above: * Do NOT do anything where dizziness or clumsiness would be dangerous. * Rest quietly at home today, then you can be up and about tomorrow. * Have a responsible person stay with you the rest of today. * You may have had an I.V. today. If so, you may take the dressing off later today. Recommendations Call your doctor if: * Trouble breathing * Continuous vomiting for more than 24 hours * Temperature above 101 degrees * Severe abdominal pain or bloating * Pain not relieved by pain medicine ordered * There is increased drainage or redness from any incision * A large amount of rectal bleeding greater than 2-3 tablespoons. (If you had a polyp/s removed or have hemorrhoids, a small amount of blood - from the rectum is to be expected.) * You have any unanswered questions or concerns. IN THE EVENT OF A SERIOUS EMERGENCY, GO TO THE NEAREST EMERGENCY ROOM Your discharge instructions were prepared by provider Kevon Toro. Patient Instructions Signature Page Heidi Viera Patient (or Guardian) Signature/Date: I have read and understand the instructions given to me by my caregivers. Caregiver/RN/Doctor Signature/Date: The above-named patient and/or guardian has received patient instructions on this date. + Original Patient Signature Page (only) stays with chart. Please make copy for patient.
[2017-05-20 12:00] VITALS: BP 128/105; PULSE 76; O2SAT 99
--- NOTE | 2017-05-20 12:17 | Anesthesiology Progress Note ---
Anesthesia Post Op Note Date & Time May 20, 2017 at 12:17 Vital Signs Pain Intensity: 0 Vital Signs Past 12 Hours Date Time Temp Pulse Resp B/P (MAP) Pulse Ox O2 Delivery O2 Flow Rate FiO2 05/20/17 12:00 76 20 128/105 (113) 99 Room Air 05/20/17 11:45 77 20 144/89 (107) 99 Room Air 05/20/17 11:27 79 20 133/91 (105) 98 Room Air 05/20/17 10:20 37.1 80 20 121/81 (94) 95 Room Air Notes Mental Status: alert / awake / arousable, participated in evaluation Pt Amnestic to Procedure: Yes Nausea / Vomiting: adequately controlled Pain: adequately controlled Airway Patency, RR, SpO2: stable & adequate BP & HR: stable & adequate Hydration State: stable & adequate Anesthetic Complications: no major complications apparent
== END | disposition home or self-care (01) ==
LOC: C.GI 09:52
PROVIDERS: ATTEND Internal Medicine
DX: Z12.11 Encounter for screening for malignant neoplasm of colon (principal); D12.8 Benign neoplasm of rectum; K64.8 Other hemorrhoids; Z85.038 Personal history of other malignant neoplasm of large intestine; I10 Essential (primary) hypertension; G47.33 Obstructive sleep apnea (adult) (pediatric); K21.9 Gastro-esophageal reflux disease without esophagitis; F17.200 Nicotine dependence, unspecified, uncomplicated; E66.9 Obesity, unspecified; Z68.35 Body mass index [BMI] 35.0-35.9, adult; Z79.82 Long term (current) use of aspirin; Z85.3 Personal history of malignant neoplasm of breast; Z98.890 Other specified postprocedural states; Z90.13 Acquired absence of bilateral breasts and nipples; Z80.0 Family history of malignant neoplasm of digestive organs

== ENCOUNTER → 2017-08-25 | Outpatient (CLI) | payer OTHER ==
[~2017-08-25] VITALS: Ht 167.6 cm; Wt 106.0 kg
[~2017-08-25] MED LIST changes: -LIDOCAINE HCL 2% 2 ML VIAL (20MG/ML) ONE; -MIDAZOLAM HCL 1 MG/ML 2ML VIAL ONE; -ONDANSETRON INJ 2 MG/ML 2 ML VIAL ONE; -PROPOFOL IV EMULSION 10 MG/ML 20 ML VIAL IV ONE; +RANI150T85 PO; -SODIUM CHLORIDE 0.9% 500ML 500 ML IV ONE; -ZNTT/150 PO
[2017-08-25 14:46] VITALS: BP 141/84; PULSE 93; Ht 167.6 cm; Wt 106.0 kg
== END | disposition home or self-care (01) ==
LOC: C.NEUR 14:24
PROVIDERS: ATTEND Internal Medicine Pulmonary Disease
DX: G47.33 Obstructive sleep apnea (adult) (pediatric) (principal)

== ENCOUNTER → 2017-09-06 | Outpatient (CLI) | payer OTHER ==
--- NOTE | 2017-09-07 05:46 | PAP/PSG TECHNICIAN REPORT ---
[facility] Apartment Property Manager Polysomnogram Report Study name: None Report date: 09/07/2017 Study date: 09/06/2017 Referring Physician: Dr. Cecil Rosas DO Name: VICKY VIERA Interpreting Physician: Cecil Rosas D.O. Date of : 1970 Apartment Property Manager: SHEKHAR Wang. Sex: Female Age: 47 StudyType: PSG Weight: 233.7 lbs Height: 47 years, Height 5' 6" Neck Circum:14.75in. BMI: 37.72 Medications: tamoxifen Citrate 20mg, Multivitamin, Vit B Complex, Zinc 25mg, HCTZ 25mg, Klor-Con M20 20MEQ, Magnesium 200mg, Vit D3 Patient History Study started on room air with no ETCO2 monitoring in room #8. 47 yr old female here tonight for a possible split psg. She has been told that she snores and has had witnessed apnea. Her ESS=9/24. Neck circ=14.75inches. Parameters Monitored NPSG: E1-M2, E2-M1, Fp1-M2, Fp2-M1, F3-M2, F4-M2, F4-M1, C3-M2, C4-M2, C4-M1, O1-M2, O2-M2, O2-M1, T3-M2, T4-M1, P3-M2, P4-M1, CHIN1, CHIN2, HR, EKG, Legs, PFLOW, SNOR, FLOW, CFLOW, Tidal Volume, THOR, ABDO, SpO2, PLTH, CPRESS, ETCO2 Wave, ETCO2, pH Sleep Architecture Sleep Stages Time at Lights Off 10:04:28 PM STAGES Time (min.) TST (%) Time at Lights On 5:30:58 AM Wake 94.5 -- Total Recording Time (TRT) 446.50 min. N1 20.0 6 Total Sleep Period (TSP) 407.0 min. N2 182.0 52 Total Sleep Time (TST) 352.0min. N3 66.0 19 Awake Time 94.5 min. REM 84.0 24 Wake after Sleep Onset 55.0 min. Sleep Efficiency (SE) 79 % Sleep Onset Latency (NORA) 39.5 min. Number of Stage 1 Shifts None Awakenings 18 Stage Changes 67 Number of REM periods 3 REM 84.0 24 REM Latency 101.5 min. NREM 268.0 76 Body Position Analysis Supine Right Left Side Prone Vertical Total Sleep Time (min.) 50.9 68.5 161.9 230.41 123.3 0.0 Total Sleep Time (%) 0% 19% 46% 65 35% N/A% Total Sleep Time REM (min.) 0.0 27.5 0.0 None 56.5 0.0 Total Sleep Time NREM (min.) 0.0 41.0 161.9 None 65.1 0.0 Intermittent Wake (min.) 50.9 15.9 26.0 None 1.7 0.0 Total Sleep Period (%) 4% None None None None None Arousals Myoclonus (PLM) * Events Count Index Events Count Index Spontaneous 8 1 Events Awake (PLMW) 60 38.1 Respiratory 1 0.2 Events Asleep w/ Arousal (PLMA) 3 0.5 PLM 3 1 Events Asleep w/o Arousal (PLMS) 8 1.4 Snoring 7 1 Total Asleep 11 1.9 Total 19 3 Total 71 10 Respiratory Analysis * CA OA MA CH H RERA Total Count 0 1 0 0 31 0 32 Index 0.0 0.2 0.0 0 5.3 0 5.5 Mean Duration 0.0 15.0 0.0 0.00 19.6 0.0 19.4 Longest Duration 0.0 15.0 0.0 0.00 0.0 0.0 39.2 Respiratory Event Summary Total Supine ~Supine Right Left Prone REM NREM Apneas Count 1 N/A 1 1 0 0 0 1 Index 0.2 N/A 0 0.9 0.0 0 0 0 Hypopneas (4% Desat) Count 31 N/A 31 30 1 0 0 31 Index 5.3 N/A 5 26.3 0.4 0.0 0.0 6.9 Apneas & All Hypopneas Count 32 N/A 32 31 1 0 0 32 Index 5.5 N/A 5 27 0 0 0.0 7.2 Respiratory Events (Apparel Machinery Instructor+All Hyp+RERA) Count 32 N/A 32 31 1 0 0 32 Index 5.5 N/A 5 27.1 0.4 0.0 0.0 7.2 Respiratory Related Arousal Count 1 N/A 1 1 0 0 0 1 Index 0.2 N/A 0 1 0 0 0 0 Snoring Analysis Supine Right Left Prone REM NREM Total Snore duration 44.0 min Snores count N/A 349 783 363 91 1,404 1,495 Snore mean duration 1.8 Sec Snores index N/A 306 290 179 65.0 314.3 254.8 TST with snoring (%) 12.5% Desaturation Event Summary: Minimum %SpO2 Event Count Mean/Min/Max Duration(sec.) Desaturation Index % Time In Bed > 90 46 20.3 / 5.3 / 60.0 6.7 94.2 86 - 90 0 N/A 0.0 5.8 81 - 85 0 N/A 0.0 0.0 76 - 80 0 N/A 0.0 0.0 71 - 75 0 N/A 0.0 0.0 66 - 70 0 N/A 0.0 0.0 61 - 65 0 N/A 0.0 0.0 56 - 60 0 N/A 0.0 0.0 51 - 55 0 N/A 0.0 0.0 < 50 0 N/A 0.0 0.0 Total REM NREM Awake <50% 0.0 min. 0.0 min. 0.0 min. 0.0 min. 51 - 60% 0.0 min. 0.0 min. 0.0 min. 0.0 min. 61 - 70% 0.0 min. 0.0 min. 0.0 min. 0.0 min. 71 - 80% 0.0 min. 0.0 min. 0.0 min. 0.0 min. 81 - 90% 25.4 min. 0.0 min. 5.7 min. 19.7 min. 91 - 100% 412.0 min. 84.0 min. 262.3 min. 65.6 min. Average 93 94 93 92 Minimum SpO2 85 92 89 85 Desaturation Event Index 6.2 0.0 7.2 9.5 # Desat. Events below 89% 1 N/A N/A 1 Time(%) with Saturation below 89% 0.0 0.0 0.0 0.0 Time(min.) with Saturation below 89% 0.1 0.0 0.0 0.1 Time (mins) REM (mins) NREM (mins) % of TST SpO2 Below 90% 8 N/A N8 0.3 SpO2 Below 88% 0 0 0 0 Heart Rate Analysis Min (bpm) Max (bpm) Average (bpm) Awake 46 255 81 NREM 60 94 72 REM 64 80 71 Overall 60 94 72 Supplemental O2 Values Minimum O2 level: None Value Start Time End Time Apartment Property Manager Comments Miss Viera slept in the right, left, supine and prone positions. No cardiac arrhythmia or PLM's noted. No bruxism noted. Snoring was noted and scored as a 4 on a scale of 1 through 5. (0=no snoring, 5=snoring loud enough to be heard through a closed door or down the arreguin way). She awoke to use the restroom 1 time during the night. She stated that she did not sleep as well as when at home. The final report will be interpreted and signed by a sleep physician. The completed physician report will then be placed in the patient medical record. Therapy (cm H2O) 0 TIB (min.) 446.5 TST (min.) 352.0 Sleep Onset (min.) 39.5 REM Onset From Sleep (min.) 101.5 Sleep Efficiency % 79 Wakefulness (%) 21 Wakefulness (min.) 94.5 NREM 1 (%) 6 NREM 1 (min.) 20.0 NREM 2 (%) 52 NREM 2 (min.) 182.0 NREM 3 (%) 19 NREM 3 (min.) 66.0 REM (%) 24 REM (min.) 84.0 # Arousals 19 Arousal Index 3 # Snore 1,495 Snore Index 254.8 AHI 5.5 AHI Supine N/A AHI Non-Supine 5 NREM AHI 7.2 REM AHI 0.0 RDI 5.5 # Obstructive Apnea 1 # Central Apnea 0 # Mixed Apnea 0 # Hypopneas 31 RERAs 0 Total Respiratory Events 34 Time Below SpO2 89% (min.) 0.0 Mean NREM SpO2 (%) 93 Mean REM SpO2 (%) 94 Mean Sleep SpO2 (%) 93 Min NREM SpO2 (%) 89 Min REM SpO2 (%) 92 Position Supine (min.) 50.9 Position Non-supine (min.) 352.0 LM Index Sleep 1.9 LM Index NREM 1.8 LM Index REM 2.1 Mean Heart Rate (bpm) 72 Min Heart Rate (bpm) 60
--- NOTE | 2017-09-10 13:18 | POLYSOMNOGRAPH REPORT ---
SLEEP STUDY REPORT CLINICAL DATA: The patient is a 47-year-old female with a history of snoring, observed apnea, and disturbed nocturnal sleep. She recently had a colonoscopy done and was told that she likely had sleep apnea. Her Brea Sleepiness Scale score is 9. The BMI is 37.72. This was an in-lab overnight polysomnography. SLEEP ARCHITECTURE: The total sleep period was 407 minutes. The total sleep time was 352 minutes. The sleep efficiency was moderately reduced to 79%. The sleep latency was prolonged at 39.5 minutes. Wake after sleep onset was increased to 55 minutes. The REM latency was 101.5 minutes. There were 2 REM periods during the night. Sleep consisted of stage N1 6%, stage N2 52%, stage N3 19%, stage REM 24%. AROUSAL DATA: The patient had a total of 19 arousals including 8 spontaneous arousals, 1 respiratory arousal, 3 PLM arousals, and 7 snoring arousals. The arousal index was 3. PLM DATA: The patient had a total of 11 periodic limb movements of sleep for a PLM index of 1.9. There were 3 arousals, associated with limb movements for a PLM arousal index of 0.5. EKG: The underlying rhythm was normal sinus. The cardiac rates ranged from 60-94 beats per minute. The average heart rate was 72 beats per minute. No cardiac arrhythmia was noted. RESPIRATORY DATA: The patient had a total of 32 respiratory events including 1 obstructive apnea and 31 hypopneas. Hypopneas were scored according to the 4% desaturation rule. The apnea was 15 seconds. The mean duration of hypopneas was 19.6 seconds. The apnea hypopnea index was mildly elevated at 5.5 events per hour and this reflects mild obstructive sleep apnea. OXIMETRY DATA: The average saturation was 93%. The minimum saturation was 85%. This may well have been artifact. There was only 0.1 minutes with saturations less than 89%. CHICKEN BUYER COMMENTS: The patient slept in the right, left, supine, and prone positions. No cardiac arrhythmia noted. No bruxism noted. Snoring was noted and scored as a 4 on a scale of 1 through 5. She awakened to use the restroom 1 time during the night. IMPRESSION: Mild obstructive sleep apnea. COMMENTS: The patient had mild apnea. Most of the events occurred near the end of the study at approximately 4:00 a.m. Her sleep efficiency was decreased in part by a prolonged sleep latency. It should be noted that she was on her cell phone for a considerable portion of the sleep latency. Her oxygenation was essentially normal. She did have a very loud snoring. It is unknown if this mild degree of sleep apnea is accounting for her complaints of disturbed nocturnal sleep and having some degree of daytime somnolence. There is a history of hypertension as a comorbidity. RECOMMENDATIONS: 1. Consideration could be given to a trial of nasal CPAP. 2. Weight loss is advised in light of the elevation of body mass index at 37.72. 3. It would be suggested that she avoid sleeping in the supine position. It should be noted that during the sleep study, she spent a very minimal amounts of time supine. 4. If she does not wish to be treated with nasal CPAP and if snoring is a major issue for her, consideration could be given to an ENT evaluation. 5. If she did not wish to try nasal CPAP, consideration could be given to referring her for an oral appliance.
== END | disposition home or self-care (01) ==
LOC: C.NEUR 21:00
PROVIDERS: ATTEND Internal Medicine Pulmonary Disease
DX: G47.33 Obstructive sleep apnea (adult) (pediatric) (principal)

== ENCOUNTER → 2017-09-29 | Outpatient (CLI) | payer OTHER ==
[~2017-09-29] VITALS: Ht 167.6 cm; Wt 107.3 kg
[2017-09-29 09:43] VITALS: BP 122/83; PULSE 93; Ht 167.6 cm; Wt 107.3 kg
== END | disposition home or self-care (01) ==
LOC: C.NEUR 08:26
PROVIDERS: ATTEND Internal Medicine Pulmonary Disease
DX: G47.33 Obstructive sleep apnea (adult) (pediatric) (principal)

== ENCOUNTER → 2018-02-02 | Outpatient (CLI) | payer OTHER | END | disposition home or self-care (01) | LOC: C.LAB 13:52 | PROVIDERS: ATTEND Nurse Practitioner | DX: Z00.00 Encounter for general adult medical examination without abnormal findings (principal) ==